=== PATIENT | female | born 1995 | race Caucasian/White ===

== ENCOUNTER 2024-09-01 14:45 | Outpatient (CLI) | payer OTHER, SELFPAY | END 2024-09-01 14:46 | disposition home or self-care (01) | LOC: NFLDREF 09-04 06:12 | PROVIDERS: Visit Provider Obstetrics & Gynecology | DX: N92.0 Excessive and frequent menstruation with regular cycle (principal) | CPT/HCPCS: 84146 ==

== ENCOUNTER 2024-09-01 14:45 | Outpatient (CLI) | payer OTHER, SELFPAY ==
--- NOTE | 2024-09-01 15:00 | CRLHL7_ITS ---
For Patients: As a result of the Century Cures Act, medical imaging exams and procedure reports are released immediately into your electronic medical record. You may view this report before your referring provider. If you have questions, please contact your health care provider. INDICATION: menorrhagia COMPARISON: none TECHNIQUE: 2D sol scale and color Doppler images were acquired of the pelvis using a transabdominal approach. FINDINGS: Sonographic images demonstrate a normal size and smooth outer contour of the uterus. Uterus measures 9.0 cm in length by 4.6 cm in AP diameter by 6.3 cm in transverse dimension. The myometrium has a normal uniform echotexture. The endometrial lining appears normal and measures 7.3 mm in thickness. The right ovary measures 4.2 x 1.5 x 1.3 cm in size and the left ovary measures 4.2 x 1.9 x 2.0 cm. The ovaries demonstrate normal arterial and venous blood flow on color Doppler analysis. There are no suspicious fluid collections within the cul-de-sac. IMPRESSION: Normal pelvic ultrasound. Dictated by Jomar Lenz MD @ 09/02/2024 12:17:02 PM (Electronically Signed)
== END 2024-09-01 14:46 | disposition home or self-care (01) ==
LOC: US 14:47
PROVIDERS: Visit Provider Obstetrics & Gynecology
DX: N92.0 Excessive and frequent menstruation with regular cycle (principal)
CPT/HCPCS: 76856